=== PATIENT | female | born 1945 | race Caucasian/White ===

== ENCOUNTER 2016-08-26 07:40 | Day surgery (SDC) | payer MEDICARE, OTHER ==
[2016-08-26] MEDS ORDERED: Lactated Ringers 1,000 ML IV SCH (07:45)
[2016-08-26] MEDS ORDERED: Sodium Chloride 0.9% 10 ML Syringe FLUSH PRN (07:45)
[2016-08-26] MEDS ORDERED: Propofol 200 MG/20 ML SDV IV ONE (10:00)
[2016-08-26] MEDS ORDERED: Glycopyrrolate 0.2 MG/ML 2 ML SDV IV ONE (10:00)
[2016-08-26 11:02] VITALS: BP 134/68
--- NOTE | 2016-08-26 11:50 | OR ---
DATE OF OPERATION: 08/26/2016 SURGEON: Fritz Jensen MD PROCEDURE PERFORMED: Colonoscopy. PREOPERATIVE DIAGNOSIS: Personal history of colon polyps. POSTOPERATIVE DIAGNOSIS: Diverticulosis. INDICATIONS FOR PROCEDURE: This is a 70-year-old white female, who presents for her 5-year followup. She is status post a sigmoid colectomy for an adenomatous polyp that could not be removed via endoscopic means. Last scope was 5 years ago, and she presents now for followup scope. DESCRIPTION OF OPERATION: After an excellent IV sedation was administered, digital rectal exam was performed. No marked abnormality was noted. The flexible colonoscope was inserted and advanced without difficulty to the cecum. The prep was excellent. The following findings were noted. Ascending colon, scattered diverticula; transverse colon, scattered diverticula; descending colon, scattered diverticula; rectum and anus, unremarkable. Colon was deflated as the scope was removed. The patient tolerated the procedure well and was taken to recovery room in good condition. RECOMMENDATIONS: Repeat colonoscopy in 5 years. /[id number] JEAN/SHA
== END 2016-08-26 11:45 | disposition home or self-care (01) ==
LOC: FB.SDS 07:40
PROVIDERS: ATTEND Surgery
DX: Z12.11 Encounter for screening for malignant neoplasm of colon (principal); K57.30 Diverticulosis of large intestine without perforation or abscess without bleeding; Z90.49 Acquired absence of other specified parts of digestive tract; Z88.0 Allergy status to penicillin; Z79.899 Other long term (current) drug therapy; Z98.890 Other specified postprocedural states
CPT/HCPCS: 00810; G0105; J2704; J7120; J3490